=== PATIENT | female | born 1990 | race Caucasian/White ===

== ENCOUNTER 2018-10-01 17:11 | Emergency (ER) | payer MEDICAID ==
--- NOTE | 2018-10-01 17:31 | EDPHY ---
H & P Time Seen by Provider: 10/01/18 17:29 HPI/ROS: CHIEF COMPLAINT: Vaginal bleeding HISTORY OF PRESENT ILLNESS: Patient is 30-year-old female here with concern for "perforation of the vaginal wall with my IUD." She states he had the Mirena placed 4 months ago and has had on and off bleeding since then. Over the last couple weeks she has had increased bleeding but has taken no home test. She does not believe she is . She has had no pain. She denies any pain with urination or fever. Yesterday evening she states she was able to feel that the plastic tip of the Mirena had "perforated the wall of my vagina." Currently she denies any abdominal pain, nausea, vomiting. REVIEW OF SYSTEMS: Constitutional: No fever, no chills. Eyes: No discharge. ENT: No sore throat. Cardiovascular: No chest pain, no palpitations. Respiratory: No cough, no shortness of breath. Gastrointestinal: No abdominal pain, no vomiting. Genitourinary: No hematuria. Musculoskeletal: No back pain. Skin: No rashes. Neurological: No headache. Smoking Status: Never smoked Physical Exam: General Appearance: Alert and no distress. ENT: normal dentition. No tonsillar exudate or swelling. Eyes: Pupils equal and round no injection. Respiratory: Chest is nontender, lungs are clear to auscultation. Cardiac: regular rate and rhythm. No lower extremity edema Gastrointestinal: Abdomen is soft and nontender, no masses, bowel sounds normal. : Though I was not able to visualize the cervix was also not able to visualize the strings or any portion of the IUD. There was no vaginal discharge or lesions or bleeding. Musculoskeletal: Neck is supple and nontender. Extremities have full range of motion and are nontender without deformity Skin: No rashes or lesions. Neuro: Cranial nerves grossly intact. Ambulatory. Constitutional: Initial Vital Signs Temperature (C) 36.8 C 10/01/18 17:18 Heart Rate 119 H 10/01/18 17:18 Respiratory Rate 18 10/01/18 17:18 Blood Pressure 143/90 H 10/01/18 17:18 O2 Sat (%) 100 10/01/18 17:18 O2 Delivery Mode Room Air Allergies/Adverse Reactions: No Known Allergies Allergy (Unverified 10/01/18 17:22) Home Medications: Medication Instructions Recorded Hydrocodone/APAP 5/325 [[place] 1 tab PO Q6 PRN #6 tab 10/01/18 5/325 (*)] MIRENA 10/01/18 Medical Decision Making - Diagnostics Imaging Results: Imaging Impressions Pelvic/Renal Ultrasound 10/01/18 17:37 Impression: 1. Malpositioned IUD obliquely in the lower uterine segment embedded into the myometrium. 2. No ovarian torsion or significant free fluid in the pelvis. Findings and recommendations discussed with Emergency Department physician, Caleb Villar PA-C at 1920 hours on October [id number]. Final report concurs with initial preliminary interpretation. ED Course/Re-evaluation: 28-year-old female here with IUD embedded into the wall of the uterus. She is nontoxic-appearing and vital signs are all stable. Hemoglobin is within normal limits. She has had these symptoms ongoing for potentially up to 4 months since her IUD was placed. Was unable to visualize the strings of the IUD home thus unable to attempt removal. Discussed case with OB who felt that this was a non emergent procedure the patient could follow up in their office for removal of the IUD. Patient stated that she did not feel safe going home because the IUD was moving and she was having pain. I again contacted OB and explained this to be who once again explained that the position of the IUD was not move a dangers position. Patient was given [place] for pain and agree to follow up with benefits advisor on Thursday - Data Points Laboratory Results: Laboratory Results 10/01/18 17:43 10/01/18 17:43 10/01/18 10/01/18 10/01/18 17:43 17:43 17:43 WBC RBC Hgb Hct MCV MCH MCHC RDW Plt Count MPV Neut % (Auto) Lymph % (Auto) [place] % (Auto) Eos % (Auto) Baso % (Auto) Nucleat RBC Rel Count Absolute Neuts (auto) Absolute Lymphs (auto) Absolute Monos (auto) Absolute Eos (auto) Absolute Basos (auto) Absolute Nucleated RBC Immature Gran % Immature Gran # Sodium 138 mEq/L mEq/L (135-145) Potassium 3.4 mEq/L L mEq/L (3.5-5.2) Chloride 103 mEq/L mEq/L (97-110) Carbon Dioxide 26 mEq/l mEq/l (22-31) Anion Gap 9 mEq/L mEq/L (6-14) BUN 7 mg/dL mg/dL (7-23) Creatinine 0.7 mg/dL mg/dL (0.6-1.0) Estimated GFR > 60 Glucose 83 mg/dL mg/dL (70-100) Calcium 9.9 mg/dL mg/dL (8.5-10.4) Beta HCG, Qual NEGATIVE Urine Color YELLOW Urine Appearance CLEAR Urine pH 5.0 (5.0-7.5) Ur Specific [place] 1.031 H (1.002-1.030) Urine Protein 1+ H (NEGATIVE) Urine Ketones TRACE H (NEGATIVE) Urine Blood NEGATIVE (NEGATIVE) Urine Nitrate NEGATIVE (NEGATIVE) Urine Bilirubin NEGATIVE (NEGATIVE) Urine Urobilinogen 4.0 EU H EU (0.2-1.0) Ur Leukocyte Esterase NEGATIVE (NEGATIVE) Urine RBC 1-3 /hpf /hpf (0-3) Urine WBC 5-10 /hpf H /hpf (0-3) Ur Epithelial Cells 1+ /lpf /lpf (NONE-1+) Calcium Oxalate Crystal PRESENT /hpf /hpf (NONE-1+) Urine Bacteria TRACE /hpf H /hpf (NONE SEEN) Hyaline Casts 1-5 /lpf /lpf (0-1) Urine Mucus 4+ /lpf H /lpf (NONE-1+) Urine Glucose NEGATIVE (NEGATIVE) 10/01/18 17:43 WBC 8.28 10^3/uL 10^3/uL (3.80-9.50) RBC 5.05 10^6/uL 10^6/uL (4.18-5.33) Hgb 14.8 g/dL g/dL (12.6-16.3) Hct 42.9 % % (38.0-47.0) MCV 85.0 fL fL (81.5-99.8) MCH 29.3 pg pg (27.9-34.1) MCHC 34.5 g/dL g/dL (32.4-36.7) RDW 13.0 % % (11.5-15.2) Plt Count 384 10^3/uL 10^3/uL (150-400) MPV 10.0 fL fL (8.7-11.7) Neut % (Auto) 56.1 % % (39.3-74.2) Lymph % (Auto) 36.0 % % (15.0-45.0) [place] % (Auto) 5.0 % % (4.5-13.0) Eos % (Auto) 2.1 % % (0.6-7.6) Baso % (Auto) 0.6 % % (0.3-1.7) Nucleat RBC Rel Count 0.0 % % (0.0-0.2) Absolute Neuts (auto) 4.65 10^3/uL 10^3/uL (1.70-6.50) Absolute Lymphs (auto) 2.98 10^3/uL 10^3/uL (1.00-3.00) Absolute Monos (auto) 0.41 10^3/uL 10^3/uL (0.30-0.80) Absolute Eos (auto) 0.17 10^3/uL 10^3/uL (0.03-0.40) Absolute Basos (auto) 0.05 10^3/uL 10^3/uL (0.02-0.10) Absolute Nucleated RBC 0.00 10^3/uL 10^3/uL (0-0.01) Immature Gran % 0.2 % % (0.0-1.1) Immature Gran # 0.02 10^3/uL 10^3/uL (0.00-0.10) Sodium Potassium Chloride Carbon Dioxide Anion Gap BUN Creatinine Estimated GFR Glucose Calcium Beta HCG, Qual Urine Color Urine Appearance Urine pH Ur Specific [place] Urine Protein Urine Ketones Urine Blood Urine Nitrate Urine Bilirubin Urine Urobilinogen Ur Leukocyte Esterase Urine RBC Urine WBC Ur Epithelial Cells Calcium Oxalate Crystal Urine Bacteria Hyaline Casts Urine Mucus Urine Glucose Medications Given: Discontinued Medications Acetaminophen (Tylenol) 1,000 mg PO EDNOW ONE Stop: 10/01/18 18:05 Last Admin: 10/01/18 18:33 Dose: Not Given Hydrocodone Bitart/Acetaminophen ([place] 5/325) 1 tab PO EDNOW ONE Stop: 10/01/18 18:33 Last Admin: 10/01/18 18:33 Dose: 1 tab Hydrocodone Bitart/Acetaminophen ([place] 5/325mg Prepack#6) 1 btl TAKEHOME EDNOW ONE Stop: 10/01/18 20:46 Last Admin: 10/01/18 22:21 Dose: 1 btl Lorazepam (Ativan) 0.5 mg PO EDNOW ONE Stop: 10/01/18 17:39 Last Admin: 10/01/18 17:56 Dose: 0.5 mg Departure - Departure Disposition: Home, Routine, Self-Care Clinical Impression: Malpositioned IUD Condition: Fair Instructions: Hydrocodone/Acetaminophen (By mouth) Additional Instructions: As discussed you're IUD is malpositioned. Please call the teaching fellow doctor at the number provided here. She is expecting her call Thursday to be seen in clinic early next week to have the IUD removed. He have worsening pain, fever, uncontrolled bleeding or other worrisome symptoms return to the ER. Referrals: NONE *PRIMARY CARE P,. [Primary Care Provider] - As per Instructions Vilma Coleman DO [Doctor of Osteopathy] - As per Instructions Prescriptions: Hydrocodone/APAP 5/325 [[place] 5/325 (*)] 1 tab PO Q6 PRN #6 tab PRN Reason: Pain, Moderate
[2018-10-01] MEDS ORDERED: LORazepam 0.5 MG TAB PO ONE (17:38)
[2018-10-01] MEDS ORDERED: ACETAMINOPHEN 500 MG TAB PO ONE (18:04)
[2018-10-01 18:08] LABS: PLATELET COUNT 384 10^3/uL (150-400)
[2018-10-01] MEDS ORDERED: HYDROCODONE/APAP 5/325 TAB ONE (18:30)
[2018-10-01] MEDS ORDERED: HYDROCODONE/APAP 5/325 TAB PO ONE (18:32)
[2018-10-01] MEDS ORDERED: HYDROCOD/APAP 5/325 PREPACK#6 BTL TAKEHOME ONE (20:45)
[2018-10-01 22:31] VITALS: BP 135/84
== END 2018-10-01 22:32 | disposition home or self-care (01) ==
LOC: EEVIPCON 17:11
DX: T83.32XA Displacement of intrauterine contraceptive device, initial encounter (principal)